=== PATIENT | female | born 1935 | race African-American/Black ===

== ENCOUNTER → 2016-05-24 | Outpatient (CLI) | payer MEDICARE, OTHER ==
--- NOTE | ~2016-05-24 | CT57 ---
[facility] A Service of [facility] RADIOLOGY TEXT RESULTS PATIENT: LEN DEXTER LOCATION: [facility] : 33 UNIT #: [id number] AGE: [address]: Priscila Roper MD SEX: F ORDER DR: [id number] [facility]. [place], [place] [address] [id number] O MR#: [id number] [facility] #: [id number] NAME: LEN DEXTER : 1935 SEX: F STUDY DATE/TIME: 05/24/2016 10:57 UNIT: [facility] ROOM: STUDY DESCRIPTION: CT Chest Wo Cont Attending Physician: Priscila Roper M.D., Ph.D. Referring Physician: Priscila Roper M.D., Ph.D. Ordering Physician: Priscila Roper M.D., Ph.D. Primary Care Physician: Antionette Elizabeth M.D. MEDICAL IMAGING REPORT This report is preliminary unless electronic signature is present EXAM Chest CT without contrast HISTORY Breast cancer. Evaluate for chest malignancy suspected. COMPARISON 09/21/2015 TECHNIQUE Axial images were obtained without contrast and evaluated at lung and mediastinal windows. This CT exam was performed with one or more of the following radiation dose reduction techniques: automatic exposure control, adjustment of mA and/or kV according to patient size, and iterative reconstruction. 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 There is no evidence of mediastinal or hilar adenopathy and there is no evidence of pleural or pericardial fluid. Postoperative changes are left mastectomy are noted. Lung window imaging shows a stable 8 mm ground glass nodule on the left. No new or enlarging lung masses are seen and no new infiltrates are noted. Degenerative changes are seen in the thoracic vertebrae, but no fractures or sclerotic deposits are noted. IMPRESSION No evidence of metastatic disease in the chest. Postop left mastectomy. No new infiltrates are seen on either side. [facility] A Service of [facility] RADIOLOGY TEXT RESULTS PATIENT: LEN DEXTER LOCATION: [facility] : 33 UNIT #: [id number] AGE: [address]: Priscila Roper MD SEX: F ORDER DR: Dictated by... Maximo Salomon M.D. THIS IS AN ELECTRONICALLY VERIFIED REPORT Maximo Salomon M.D. at 05/25/2016 8:03 AM RLF/mark TD: 05/24/2016 18:02 JOB #: [id number] MEDICAL IMAGING REPORT Page 1 of 1 COPY
== END | disposition home or self-care (01) ==
LOC: CCAT 10:20
DX: Z08 Encounter for follow-up examination after completed treatment for malignant neoplasm (principal); Z85.3 Personal history of malignant neoplasm of breast; Z90.12 Acquired absence of left breast and nipple
CPT/HCPCS: 71250